=== PATIENT | male | born 1945 | race Hispanic/Latino ===

== ENCOUNTER 2019-10-01 11:00 | Inpatient (IN) | payer OTHER ==
[~2019-10-01] VITALS: Ht 180.3 cm; Wt 117.9 kg
[2019-10-10 08:53] VITALS: BP 137/83
[2019-10-10 11:09] LABS: BASOPHILS % (AUTO) 0.5 % (0.0-5.0); EOSINOPHILS % (AUTO) 3.6 % (0.0-8.0); HEMATOCRIT 43.7 % (42-54); LYMPHOCYTES % (AUTO) 25.6 % (21.0-51.0); MEAN CORPUSCULAR HEMOGLOBIN 30.8 pg (27.0-33.0); MEAN CORPUSCULAR HGB CONC 32.7 g/dL (32.0-36.0); MONOCYTES % (AUTO) 11.8 % (3.0-13.0); NEUTROPHILS % (AUTO) 58.2 % (40.0-77.0); PLATELET COUNT (AUTO) 247 K/uL (130-400); RED BLOOD CELL COUNT(AUTO) 4.65 MIL/uL (4.50-6.20); RED CELL DISTRIBUTION WIDTH 13.2 % (11.0-15.5); WHITE BLOOD COUNT (AUTO) 5.8 K/uL (4.8-10.8)
[2019-10-10 11:11] LABS: APPEARANCE,URINE Clear (CLEAR); BILIRUBIN,URINE Negative (NEGATIVE); COLOR,URINE Dark Yellow (YELLOW); GLUCOSE, URINE (UA) Negative (NEGATIVE); KETONES,URINE Negative (NEGATIVE); LEUKOCYTE ESTERASE ,URINE Negative (NEGATIVE); NITRATE,URINE Negative (NEGATIVE); OCCULT BLOOD,URINE Negative (NEGATIVE); PH,URINE 5.5 (5.0-8.0); PROTEIN,URINE POS 1+ mg/dL (NEGATIVE); UROBILINOGEN,URINE 0.2 mg/dL (0.2-1.0)
[2019-10-10 11:15] LABS: CREATININE 1.4 mg/dL (0.5-1.5); POTASSIUM 4.1 mmol/L (3.5-5.1)
[2019-10-10 11:25] LABS: INR 1.04 (0.85-1.15); PROTHROMBIN TIME 11.2 SEC (9.6-11.6)
[2019-10-10 11:33] LABS: BACTERIA,URINE None Seen /HPF (None Seen); RBC,URINE 0-1 /HPF (0-1); SPERM,URINE Moderate /HPF (None Seen); SQUAMOUS EPITHELIAL CELL,UR 0-2 /HPF (0-2); WBC,URINE 0-1 /HPF (0-1)
[2019-10-11] MEDS ORDERED: ATOR40TA69 PO (09:49)
[2019-10-11] MEDS ORDERED: PANT40TA54 PO (09:49)
[2019-10-11] MEDS ORDERED: TRAM50TA4 PO (09:49)
[2019-10-11] MEDS ORDERED: LISI2.5T2 PO (09:49)
[2019-10-11] MEDS ORDERED: ACET-66 PO (09:49)
[2019-10-11] MEDS ORDERED: LORA10TA7 PO (09:49)
[2019-10-11] MEDS ORDERED: ASPI1CPM8 PO (09:49)
[2019-10-11] MEDS ORDERED: DOCU100C33 PO (09:49)
[2019-10-11] MEDS ORDERED: VITA1TAB22 PO (09:49)
[2019-10-11] MEDS ORDERED: ALBUTEROL INHALER IH (09:49)
[2019-10-11] MEDS ORDERED: METH500T6 PO (09:50)
--- NOTE | 2019-10-11 11:45 | NUR ---
re: order clarification spoke with dr woodward regarding order for left knee arthroplasty. clarified order, patient will be having a RIGHT knee arthroscopy. Addendum: 10/11/19 at 1201 by FIONA STEWARD RN RN patient will be having a RIGHT knee arthroplasty
[2019-10-14] VITALS (24 sets, daily range): BP systolic 100–164; BP diastolic 46–95
[2019-10-14] MEDS: CEFAZOLIN 3GM /D5W 100ML 100 ML IV SCH (06:00)
[2019-10-14] MEDS ORDERED: LACTATED RINGERS 1000ML 1,000 ML IV ONE (07:41)
[2019-10-14] MEDS ORDERED: CEFAZOLIN SODIUM 1 GM VIAL ONE ×3 (07:41→08:55)
--- NOTE | 2019-10-14 08:00 | NUR ---
POTENTIAL FOR INFECTION: SHAVED RIGHT KNEE / RIGHT LEG PER ANIBAL YEH, FOLLOWED BY WIPING WITH CHLOE: 2% CHLORHEXIDINE GLUCONATE CLOTH PATIENTS PRE-OP SKIN PREP.
[2019-10-14] MEDS ORDERED: PROPOFOL 10 MG/ML 20ML VIAL IV ONE (09:02)
[2019-10-14] MEDS ORDERED: FENTANYL CITRATE PF 50 MCG/1 ML 2ML VIAL ONE ×2 (09:02→10:46)
[2019-10-14] MEDS ORDERED: LIDOCAINE PF 2% 5ML ABBOJECT ONE (09:02)
[2019-10-14] MEDS ORDERED: ROCURONIUM 10MG/1ML SYR 10 MG/ML ML ONE (09:02)
[2019-10-14] MEDS ORDERED: SUCCINYLCHOLINE CHLORIDE 20 MG/ML 10 ML VIAL ONE (09:07)
[2019-10-14] MEDS ORDERED: TRANEXAMIC ACID 1000MG/10ML ONE ×2 (09:17→12:08)
[2019-10-14] MEDS ORDERED: NEOSTIGMINE 5MG/5ML SYR IV ONE (09:56)
[2019-10-14] MEDS ORDERED: GLYCOPYRROLATE 1 MG/5 ML SYRINGE ONE (09:56)
[2019-10-14] MEDS ORDERED: POTASSIUM CHLORIDE 20MEQ/100ML 100 ML IV PRN (12:00)
[2019-10-14] MEDS ORDERED: DiphenhydrAMINE HCL 50 MG/ML VIAL IVP PRN (12:00)
[2019-10-14] MEDS ORDERED: POTASSIUM CHLORIDE 20 MEQ ERTAB PO PRN (12:00)
[2019-10-14] MEDS ORDERED: FERROUS FUMARATE 324 MG TABLET PO PRN (12:00)
[2019-10-14] MEDS ORDERED: ONDANSETRON HCL 4 MG/2 ML VIAL IVP PRN (12:00)
[2019-10-14] MEDS ORDERED: CALCIUM CARBONATE 500 MG TABLET PO PRN (12:00)
[2019-10-14] MEDS ORDERED: TEMAZEPAM 15 MG CAPSULE PO PRN (12:00)
[2019-10-14] MEDS ORDERED: POTASSIUM CHLORIDE 10% ELIXIR 20 MEQ/15 ML UDCUP PO PRN (12:00)
[2019-10-14] MEDS ORDERED: LIDOCAINE HCL-MPF 1% 2ML VIAL IV PRN (12:00)
[2019-10-14] MEDS ORDERED: ONDANSETRON HCL 4 MG/2 ML VIAL ONE (12:03)
[2019-10-14] MEDS ORDERED: MEPERIDINE-PF 25 MG/ML SYG ONE (13:00)
--- NOTE | 2019-10-14 13:33 | NUR ---
POST SURGERY PATIENT RECEIVED FROM PACU VIA HOSPITAL BED IN STABLE CONDITION. HE IS AWAKE BUT GROGGY. DENIES PAIN AT THIS TIME. DRESSING TO THE RIGHT KNEE IS DRY AND INTACT. IV IS PATENT INFUSING IV FLUIDS VIA PUMP WITH NO REDNESS OR SWELLING NOTED TO SITE. HE HAS BEEN ORIENTED TO ROOM AND USE OF CALL LIGHT. BED IS IN LOWEST POSITION AND LOCKED. POST OP V/S HAVE BEEN INITIATED. WILL CONTINUE TO MONITOR.
--- NOTE | 2019-10-14 13:39 | NUR ---
DC PLAN VISITED WITH PATIENT. PATIENT VALENTÍN S/P RIGHT KNEE. CALLED SPOUSE. PATIENT LIVES AT HOME WITH HER. INDEPENDENT. DME AVAILABLE, WALKER, WHEEL CHAIR, SCOOTER, CANE, DISABLED BATHROOM, SOFA LIFT. ASKED PERMISSION TO [place]END [place] FOR HOME HEALTH. GAVE CONSENT OVER THE PHONE. INFO SENT TO [place]. PENDING FAX TO BE RECEIVED. SENT TO ALL 4 NUMBERS. Addendum: 10/14/19 at 1342 by SHARMAINE KIM RN Amended: Links added.
[2019-10-14] MEDS: SODIUM CHLORIDE 0.9% 1000ML 1,000 ML IV SCH (13:55)
[2019-10-14] MEDS: ACETAMINOPHEN EXTRA STRENGTH 500 MG TABLET PO SCH ×2 (13:57→20:41)
[2019-10-14] MEDS ORDERED: TRAMADOL HCL 50 MG TABLET PO PRN (14:15)
[2019-10-14] MEDS ORDERED: ACETAMINOPHEN EXTRA STRENGTH 500 MG TABLET PO PRN (14:15)
[2019-10-14] MEDS: CEFAZOLIN SODIUM 1 GM VIAL IVP SCH (17:16)
[2019-10-14] MEDS: OXYCODONE HCL 5 MG TAB PO PRN (17:17)
[2019-10-14] MEDS: TRAMADOL HCL 50 MG TABLET PO PRN (17:28)
[2019-10-14] MEDS: ASPIRIN 81MG TAB.CHEW PO SCH (20:40)
[2019-10-14] MEDS: KETOROLAC TROMETHAMINE 15MG/ML IV PRN (20:40)
[2019-10-14] MEDS: FAMOTIDINE 20MG TAB 20 MG TAB PO SCH (20:41)
[2019-10-14] MEDS: PREGABALIN 25 MG CAP PO SCH (20:41)
[2019-10-14] MEDS: CELECOXIB 200 MG CAP PO SCH (20:41)
[2019-10-15] MEDS: CEFAZOLIN SODIUM 1 GM VIAL IVP SCH (00:32)
[2019-10-15] MEDS: CYCLOBENZAPRINE HCL 10 MG TABLET PO PRN ×4 (00:32→16:37)
[2019-10-15] MEDS: SODIUM CHLORIDE 0.9% 1000ML 1,000 ML IV SCH ×3 (00:34→10:28)
[2019-10-15] MEDS: TRAMADOL HCL 50 MG TABLET PO PRN ×3 (00:34→13:21)
[2019-10-15 03:51] VITALS: BP 105/62
[2019-10-15] MEDS: ACETAMINOPHEN EXTRA STRENGTH 500 MG TABLET PO SCH ×3 (04:40→20:07)
[2019-10-15 05:02] LABS: HEMATOCRIT 31.6 % (42-54); MEAN CORPUSCULAR HEMOGLOBIN 31.1 pg (27.0-33.0); MEAN CORPUSCULAR HGB CONC 33.5 g/dL (32.0-36.0); MEAN CORPUSCULAR VOLUME 92.7 fL (79-99); RED BLOOD CELL COUNT(AUTO) 3.41 MIL/uL (4.50-6.20); RED CELL DISTRIBUTION WIDTH 13.2 % (11.0-15.5); WHITE BLOOD COUNT (AUTO) 7.8 K/uL (4.8-10.8)
[2019-10-15 05:23] LABS: CREATININE 1.5 mg/dL (0.5-1.5)
[2019-10-15] MEDS: CEFAZOLIN 3GM /D5W 100ML 100 ML IV SCH (06:00)
[2019-10-15] MEDS: PHARMACY COMMUNICATION MISC SCH ×3 (06:45→22:45)
[2019-10-15] MEDS: KETOROLAC TROMETHAMINE 15MG/ML IV PRN (08:00)
[2019-10-15 08:02] VITALS: BP 109/62
[2019-10-15] MEDS: CELECOXIB 200 MG CAP PO SCH ×2 (08:32→20:01)
[2019-10-15] MEDS: VITAMIN B COMPLEX 1 CAPSULE PO SCH (08:32)
[2019-10-15] MEDS: TAMSULOSIN HCL 0.4 MG CAP.ER.24H PO SCH (08:32)
[2019-10-15] MEDS: POLYETHYLENE GLYCOL 3350 17 GM POWD.PACK PO SCH (08:32)
[2019-10-15] MEDS: ASPIRIN 81MG TAB.CHEW PO SCH ×2 (08:33→20:01)
[2019-10-15] MEDS: LORATADINE 10 MG TABLET PO SCH (08:33)
[2019-10-15] MEDS: PREGABALIN 25 MG CAP PO SCH ×2 (08:33→20:01)
[2019-10-15] MEDS: ATORVASTATIN CALCIUM 40 MG TABLET PO SCH (08:33)
[2019-10-15] MEDS: LISINOPRIL 2.5 MG TABLET PO SCH (08:33)
[2019-10-15] MEDS ORDERED: PANTOPRAZOLE SODIUM 40 MG TABLET.DR PO SCH (09:00)
--- NOTE | 2019-10-15 10:40 | NUR ---
AFTER ONLY 30 MINUTES SITTING IN THE CHAIR, PATIENT WANTED TO GO BACK TO BED, EDUCATED PATIENT ON LUNG EXPANSION AND PREVENTION OF PNEUMONIA. PATIENT AGREED TO STAY A LITTLE LONGER ON THE CHAIR. ICE APPLIED TO RIGHT KNEE.
[2019-10-15 11:08] VITALS: BP 100/61
[2019-10-15 16:07] VITALS: BP 97/54
[2019-10-15] MEDS: FAMOTIDINE 20MG TAB 20 MG TAB PO SCH (20:01)
[2019-10-15 20:20] VITALS: BP 109/62
[2019-10-15] MEDS: OXYCODONE HCL 5 MG TAB PO PRN (23:08)
[2019-10-15 23:48] VITALS: BP 105/62
[2019-10-16 03:50] VITALS: BP 122/69
[2019-10-16] MEDS: ACETAMINOPHEN EXTRA STRENGTH 500 MG TABLET PO SCH ×2 (04:00→12:18)
[2019-10-16] MEDS: PHARMACY COMMUNICATION MISC SCH ×2 (06:45→12:00)
[2019-10-16] MEDS: TAMSULOSIN HCL 0.4 MG CAP.ER.24H PO SCH (07:43)
[2019-10-16] MEDS: CELECOXIB 200 MG CAP PO SCH (07:43)
[2019-10-16] MEDS: LORATADINE 10 MG TABLET PO SCH (07:43)
[2019-10-16] MEDS: PREGABALIN 25 MG CAP PO SCH (07:43)
[2019-10-16] MEDS: LISINOPRIL 2.5 MG TABLET PO SCH (07:43)
[2019-10-16] MEDS: POLYETHYLENE GLYCOL 3350 17 GM POWD.PACK PO SCH (07:43)
[2019-10-16] MEDS: ASPIRIN 81MG TAB.CHEW PO SCH (07:43)
[2019-10-16] MEDS: ATORVASTATIN CALCIUM 40 MG TABLET PO SCH (07:44)
[2019-10-16] MEDS: OXYCODONE HCL 5 MG TAB PO PRN ×4 (07:44→19:57)
[2019-10-16] MEDS: VITAMIN B COMPLEX 1 CAPSULE PO SCH (07:44)
[2019-10-16 08:46] VITALS: BP 114/65
[2019-10-16 11:32] VITALS: BP 106/65
[2019-10-16 16:47] VITALS: BP 99/62
[2019-10-16] MEDS ORDERED: ASPI-1005 PO (17:30)
[2019-10-16] MEDS ORDERED: TRAM50TA4 PO (17:30)
[2019-10-16] MEDS ORDERED: OXYC5 PO (18:26)
[2019-10-17] MEDS ORDERED: BISACODYL 10 MG SUPP.RECT RC PRN (12:00)
== END 2019-10-16 20:40 | disposition home health service (06) | DRG 470 ==
LOC: EDSTATUS 10-11 10:00 → DAHIP 10-14 07:25 → 3DH 10-14 12:08
PROVIDERS: ADMIT Orthopaedic Surgery; ATTEND Orthopaedic Surgery
PROC: 3E0T3BZ Introduction of Anesthetic Agent into Peripheral Nerves and Plexi, Percutaneous Approach (ICD-10-PCS; 2019-10-14)
PROC: 0SRC0J9 Replacement of Right Knee Joint with Synthetic Substitute, Cemented, Open Approach (ICD-10-PCS; principal; 2019-10-14 09:32)
DX: M17.11 Unilateral primary osteoarthritis, right knee (principal); K21.9 Gastro-esophageal reflux disease without esophagitis; E78.5 Hyperlipidemia, unspecified; G89.29 Other chronic pain; F17.200 Nicotine dependence, unspecified, uncomplicated; F43.10 Post-traumatic stress disorder, unspecified; G25.81 Restless legs syndrome; H91.90 Unspecified hearing loss, unspecified ear; I10 Essential (primary) hypertension; J44.9 Chronic obstructive pulmonary disease, unspecified; G56.00 Carpal tunnel syndrome, unspecified upper limb; Z88.5 Allergy status to narcotic agent; Z81.8 Family history of other mental and behavioral disorders
CPT/HCPCS: 36415; 80048; 81001; 85025; 85027; 85610; 87641; 88305; 88311; 97039; G0378; J0330; J0690; J1885; J2001; J2175; J2405; J2704; J2710; J3010; J3490; J7030; J7120

== ENCOUNTER 2021-12-25 19:07 | Emergency (ER) | payer OTHER ==
[~2021-12-25] VITALS: Ht 185.4 cm; Wt 114.3 kg
[~2021-12-25 19:07] MED LIST: ACET-66 PO; ALBUTEROL INHALER IH; ASPI-1005 PO; ATOR40TA69 PO; DOCU100C33 PO; LISI2.5T13 PO; LORA10TA7 PO; METH-811 PO; OXYC5 PO; PANT40TA54 PO; TRAM50TA4 PO; VITA1TAB22 PO
[2021-12-25 19:26] LABS: BASOPHILS % (AUTO) 0.6 % (0.0-5.0); EOSINOPHILS % (AUTO) 6.4 % (0.0-8.0); HEMATOCRIT 40.6 % (42-54); LYMPHOCYTES % (AUTO) 36.8 % (21.0-51.0); MEAN CORPUSCULAR HEMOGLOBIN 31.5 pg (27.0-33.0); MEAN CORPUSCULAR HGB CONC 33.7 g/dL (32.0-36.0); MEAN CORPUSCULAR VOLUME 93.3 fL (79-99); NEUTROPHILS % (AUTO) 44.9 % (40.0-77.0); PLATELET COUNT (AUTO) 226 K/uL (130-400); RED BLOOD CELL COUNT(AUTO) 4.35 MIL/uL (4.50-6.20); WHITE BLOOD COUNT (AUTO) 6.9 K/uL (4.8-10.8)
[2021-12-25 19:48] LABS: ALBUMIN 3.4 g/dL (3.5-5.0); CREATININE 1.4 mg/dL (0.5-1.5); POTASSIUM 3.9 mmol/L (3.5-5.1); TOTAL PROTEIN, SERUM 7.2 g/dL (6.0-8.3)
[2021-12-25 20:23] LABS: APPEARANCE,URINE CLEAR (CLEAR); BILIRUBIN,URINE NEGATIVE (NEGATIVE); COLOR,URINE YELLOW (YELLOW); GLUCOSE, URINE (UA) NEGATIVE (NEGATIVE); KETONES,URINE NEGATIVE (NEGATIVE); LEUKOCYTE ESTERASE ,URINE NEGATIVE (NEGATIVE); NITRATE,URINE NEGATIVE (NEGATIVE); OCCULT BLOOD,URINE NEGATIVE (NEGATIVE); PROTEIN,URINE NEGATIVE (NEGATIVE); UROBILINOGEN,URINE 0.2 mg/dL (0.2-1.0)
[2021-12-25 21:00] VITALS: BP 133/82
== END 2021-12-25 21:13 | disposition home or self-care (01) ==
LOC: EDH 19:07
DX: R42 Dizziness and giddiness (principal); E11.9 Type 2 diabetes mellitus without complications; I10 Essential (primary) hypertension; Z88.5 Allergy status to narcotic agent; Z79.82 Long term (current) use of aspirin; Z79.899 Other long term (current) drug therapy
CPT/HCPCS: 36415; 70450; 80053; 81003; 84484; 85025; 93005

== ENCOUNTER 2024-07-30 01:07 | Emergency (ER) | payer OTHER, MEDICARE ==
[~2024-07-30] VITALS: Ht 180.3 cm; Wt 116.1 kg
[~2024-07-30 01:07] MED LIST changes: +VITA-427 PO; -VITA1TAB22 PO
[2024-07-30] MEDS: ketOROlac 30MG VIAL (30MG/ML) IVP ONE (01:37)
[2024-07-30 01:38] LABS: BASOPHILS # (AUTO) 0.04 K/uL (0.00-0.20); BASOPHILS % (AUTO) 0.5 % (0.0-5.0); EOSINOPHILS # (AUTO) 0.36 K/uL (0.00-0.70); EOSINOPHILS % (AUTO) 4.3 % (0.0-8.0); HEMATOCRIT 31.9 % (42-54); IMMATURE GRANULOCYTE ABSOLUTE 0.02 K/uL (0-1); LYMPHOCYTES # (AUTO) 2.1 K/uL (1.0-4.8); LYMPHOCYTES % (AUTO) 25.3 % (21.0-51.0); MEAN CORPUSCULAR HEMOGLOBIN 31.4 pg (27.0-33.0); MEAN CORPUSCULAR VOLUME 98.2 fL (79-99); MONOCYTES # (AUTO) 0.9 K/uL (0.1-1.0); MONOCYTES % (AUTO) 10.9 % (3.0-13.0); NEUTROPHILS # (AUTO) 4.9 K/uL (1.8-7.7); NEUTROPHILS % (AUTO) 58.8 % (40.0-77.0); PLATELET COUNT (AUTO) 325 K/uL (130-400); RED BLOOD CELL COUNT(AUTO) 3.25 MIL/uL (4.50-6.20); RED CELL DISTRIBUTION WIDTH 13.3 % (11.0-15.5); WHITE BLOOD COUNT (AUTO) 8.3 K/uL (4.8-10.8)
--- NOTE | 2024-07-30 01:41 | ERN ---
General Chief Complaint: Knee Injury/Swelling Stated Complaint: LEFT KNEE PAIN Time Seen by MD: 01:10 Source: patient History of Present Illness Initial Comments PATIENT IS A 78-YEAR-OLD MALE COMING IN TO BE EVALUATED FOR LEFT KNEE PAIN. PATIENT STATES THAT THE PAIN HAS BEEN ONGOING FOR SOME TIME. HE STATES HE HAS A SURGERY IN THE LEFT KNEE FOR THE PAIN BUT THE PAIN STILL HAS NOT GOTTEN ANY BETTER. PATIENT STATES THAT THE PAIN HAS BEEN ONGOING SINCE PRIOR TO SURGERY SURGERY WAS TWO WEEKS AGO. Allergies: Coded Allergies: codeine (Verified Allergy, Unknown, 10/11/19) Home Meds Active Scripts Oxycodone HCl (Roxicodone) 5 Mg Tab, 5-10 MG PO Q6HPRN PRN for pain, #40 TAB Prov:JAKE SCHMITT MD 10/16/19 Aspirin (ASPIRIN 81MG CHEW TAB) 81 Mg Tab.chew, 81 MG PO BID, #60 TAB.CHEW Prov:JAKE SCHMITT MD 10/16/19 Tramadol Hcl (Tramadol HCl) 50 Mg Tablet, 50 MG PO Q6H PRN for pain, #60 TAB 1 Refill Prov:JAKE SCHMITT MD 10/16/19 Reported Medications Methocarbamol (Methocarbamol) 500 Mg Tablet, 500 MG PO QIDP PRN for MUSCLE SPASMS, TAB 10/11/19 [Albuterol Inhaler] No Conflict Check, 2 PUFF IH AD PRN for SHORTNESS OF BREAT H 10/11/19 Atorvastatin Calcium (LIPITOR) 80 Mg Tablet, 40 MG PO DAILY, TAB 10/11/19 Vitamin B Complex (Vitamin B Complex) 1 Each Tablet, 1 EACH PO DAILY, TAB 10/11/19 Docusate Sodium (Docusate Sodium) 100 Mg Capsule, 100 MG PO DAILY, CAP 10/11/19 Acetaminophen (Tylenol) 500 Mg Tab, 500 MG PO TIDP PRN for PAIN LEVEL 1 TO 5, TAB 10/11/19 Tramadol Hcl (Tramadol HCl) 50 Mg Tablet, 50 MG PO TIDP PRN for PAIN LEVEL 6 TO 10, TAB 10/11/19 Pantoprazole Sodium (Pantoprazole Sodium) 40 Mg Tablet.dr, 40 MG PO DAILY, TAB 10/11/19 Loratadine (Loratadine) 10 Mg Tablet, 10 MG PO DAILY, TAB 10/11/19 Lisinopril (Lisinopril) 2.5 Mg Tablet, 2.5 MG PO DAILY, TAB 10/11/19 Past Medical History Past Medical History: Arthritis, Diabetes-Type II, Hypertension Past Surgical History: Other Surgical History Other: R KNEE REPLACEMENT, HERNIA REPAIR Social History Social History: Other ROS Dictation CONSTITUTIONAL: NO CHILLS, NO FEVER, NO WEAKNESS, NO DIAPHORESIS, NO MALAISE. HEAD/FACE: NO SIGNS OF TRAUMA. EENT: NO EYE PAIN, NO BLURRED VISION, NO TEARING, NO DOUBLE VISION, NO EAR PAIN, NO EAR DISCHARGE, NO NOSE PAIN, NO NASAL CONGESTION, NO THROAT PAIN, NO THROAT SWELLING, NO MOUTH PAIN. RESPIRATORY: NO COUGH, NO ORTHOPNEA, NO SOB, NO STRIDOR, NO WHEEZING. CARDIOVASCULAR: NO CHEST PAIN, NO EDEMA, NO PALPITATIONS, NO SYNCOPE. GASTROINTESTINAL/ABDOMINAL: NO ABDOMINAL PAIN, NO CONSTIPATION, NO DIARRHEA, NO NAUSEA, NO VOMITING. GENITOURINARY: NO ABNORMAL DISCHARGE, NO DYSURIA, NO FREQUENT URINATION, NO HEMATURIA. NO COMPLAINTS OF PAIN IN THE GENITALS. MUSCULOSKELETAL: NO BACK PAIN, NO GOUT, JOINT PAIN, NO JOINT SWELLING, MUSCLE PAIN, MUSCLE STIFFNESS, NO NECK PAIN. INTEGUMENTARY: NO CHANGE IN COLOR, NO CHANGE IN HAIR/NAILS, NO DRYNESS, NO L ESION, NO LUMPS, NO RASH. NEUROLOGICAL/PSYCH: NO ANXIETY, NOT DEPRESSED, NO EMOTIONAL PROBLEM, NO HEADACHE, NO NUMBNESS, NO PRE-EXISTING DEFICIT, NO HISTORY OF SEIZURES, NO TREMORS, NO WEAKNESS. HEMATOLOGIC/LYMPHATIC: NOT ANEMIC, NO HISTORY OF BLOOD CLOTS, NO APPARENT BLEEDING, NO BRUISING, GLANDS NOT SWOLLEN. ALL SYSTEMS NEGATIVE, EXCEPT NOTED. Physical Exam Physical Exam Dictation VITAL SIGNS: REVIEWED. GENERAL APPEARANCE: ALERT, ORIENTED X3, NO ACUTE DISTRESS, OBESE. HEAD AND FACE: NON-TRAUMATIC. EYES: PERRL, PINK CONJUNCTIVAS, EYELID NO TRAUMA, ANTERIOR CHAMBER CLEAR. EARS: PINNAS INTACT AND NO SIGNS OF TRAUMA OR ERYTHEMA. EAR CANALS CLEAR AND NO DISCHARGE. TMS NO ERYTHEMA. NOSE: NO DISCHARGE, NO BLEEDING. OROPHARYNX: MOUTH NORMAL, TEETH NO CARIES, TONGUE PINK. PHARYNX CLEAR, NO ERYTHEMA. TONSILS NO EXUDATES, NO ABSCESSES NOTED. MUCOUS MEMBRANE MOIST. NECK: SUPPLE, NON-TENDER, NO THYROMEGALY, NO MASSES, NO JVD, NO BRUITS. BREAST: DEFERRED. CHEST: NO TENDERNESS, NO CREPITUS, NO PARADOXICAL MOVEMENT, NO RETRACTIONS. LUNGS: CLEAR, WELL-VENTILATED, SYMMETRIC, NO RALES, NO WHEEZING, NO RHONCHI, NO STRIDOR, GOOD BREATH SOUNDS BILATERALLY. HEART: REGULAR RATE, REGULAR RHYTHM, NO MURMUR, NO GALLOPS. VASCULAR: NO PERIPHERAL EDEMA. ABDOMEN: SOFT, POSITIVE BOWEL SOUNDS, NONDISTENDED, NO GUARDING, NONTENDER, NO REBOUND, NO MASSES NO HEPATOMEGALY, NO SPLENOMEGALY, NO THOMSON'S SIGN, NO HERNIAS. RECTAL: DEFERRED. GENITAL: DEFERRED. NEUROLOGICAL: NORMAL SPEECH, GROSS MOTOR FUNCTION INTACT, GROSS SENSORY FUNCTION INTACT. MUSCULOSKELETAL: NECK NONTENDER, FULL RANGE OF MOTION, BACK NONTENDER, FULL RANGE OF MOTION. EXTREMITIES: NONTENDER, FULL RANGE OF MOTION. LEFT KNEE PAIN. SKIN: COLOR PINK, DRY, NO TURGOR, NO RASH, NO LACERATIONS, NO ABRASIONS, NO CONTUSIONS. LYMPHATICS: DEFERRED. Results Laboratory and Microbiology Lab and Micro Result Laboratory Tests Test 07/30/24 01:30 White Blood Count 8.3 K/uL (4.8-10.8) Red Blood Count 3.25 MIL/uL (4.50-6.20) L Hemoglobin 10.2 g/dL (14.0-18.0) L Hematocrit 31.9 % (42-54) L Mean Corpuscular Volume 98.2 fL (79-99) Mean Corpuscular Hemoglobin 31.4 pg (27.0-33.0) Mean Corpuscular Hemoglobin Concent 32.0 g/dL (32.0-36.0) Red Cell Distribution Width 13.3 % (11.0-15.5) Platelet Count 325 K/uL (130-400) Mean Platelet Volume 9.6 fL (7.5-10.5) Immature Granulocyte % (Auto) 0.2 % (0-1) Neutrophils (%) (Auto) 58.8 % (40.0-77.0) Lymphocytes (%) (Auto) 25.3 % (21.0-51.0) Monocytes (%) (Auto) 10.9 % (3.0-13.0) Eosinophils (%) (Auto) 4.3 % (0.0-8.0) Basophils (%) (Auto) 0.5 % (0.0-5.0) Neutrophils # (Auto) 4.9 K/uL (1.8-7.7) Lymphocytes # (Auto) 2.1 K/uL (1.0-4.8) Monocytes # (Auto) 0.9 K/uL (0.1-1.0) Eosinophils # (Auto) 0.36 K/uL (0.00-0.70) Basophils # (Auto) 0.04 K/uL (0.00-0.20) Absolute Immature Granulocyte (auto 0.02 K/uL (0-1) Nucleated Red Blood Cells 0.0 % (0.0-0.19) Sodium Level 141 mmol/L (136-145) Potassium Level 4.7 mmol/L (3.5-5.1) Chloride Level 107 mmol/L (101-111) Carbon Dioxide Level 27 mmol/L (21-32) Blood Urea Nitrogen 26 mg/dL (7-18) H Creatinine 1.6 mg/dL (0.5-1.3) H Glomerular Filtration Rate Calc 44 mL/min (>90) Random Glucose 105 mg/dL (70-105) Total Calcium 9.2 mg/dL (8.5-10.1) Labs Reviewed?: Yes EKG/XRAY/US/CT/MRI X-RAY Comment LEFT KNEE X-RAY-NAD Ultrasound Comment VENOUS ULTRASOUND LOWER LEFT EXTREMITY- NO DVT MDM MDM: DIFFERENTIAL DIAGNOSIS: KNEE PAIN, STATUS POST SURGERY, RULE OUT DVT, PATIENT IS A 78-YEAR-OLD MALE COMING IN TO BE EVALUATED FOR LEFT KNEE PAIN. PHYSICAL EXAM THERE IS TENDERNESS THE LEFT KNEE AND TENDERNESS TO THE LEFT CALF. ULTRASOUND AND X-RAY DID NOT DISCLOSE ACUTE FINDINGS. PATIENT DID HAVE A SURGERY FOR THIS SAME PROBLEM TO HELP WITH THE PAIN BUT PATIENT STATES HE IS STILL HAVING PAIN. IMAGING STUDIES NEGATIVE ADVISED HIM APPROPRIATE FOLLOW UP WITH THE PCP IN 1-2 DAYS. PATIENT WILL BE DISCHARGED IN STABLE CONDITION. ED Course Orders Procedure Category Date Status Time Cbc With Differential LAB 07/30/24 Complete 01:15 Basic Metabolic Panel LAB 07/30/24 Complete 01:15 Knee 4+Vws Lt RAD 07/30/24 Taken 01:15 Ketorolac PHA 07/30/24 Complete Tromethamine 30mg/Ml 01:30 Us Venous Doppler US 07/30/24 Taken Unilateral 01:58 Current Medications Medications (Trade) Dose Ordered Sig/Sesar Route PRN Reason Start Time Stop Time Status Last Admin Dose Admin Ketorolac Tromethamine (toRADol) 30 mg ONCE ONCE IVP 07/30/24 01:30 07/30/24 01:31 DC 07/30/24 01:37 Vital Signs Date Time Temp Pulse Resp B/P (MAP) Pulse Ox O2 Delivery O2 Flow Rate FiO2 07/30/24 01:30 98.4 66 18 144/62 99 Room Air* 0 21 07/30/24 01:08 98.1 60 16 151/80 98 Room Air 0 DX & DISP Disposition: Discharge Departure Impression: Primary Impression: Left knee pain Additional Impressions: Strain of left knee, Status post knee replacement Condition: Stable Additional Instructions: FOLLOW-UP WITH PRIMARY CARE PROVIDER IN 1 TO 2 DAYS. TAKE MEDICATIONS DIRECTED HERE IN THE EMERGENCY ROOM. OKAY TO CONTINUE HOME MEDICATIONS UNLESS OTHERWISE DISCUSSED DURING YOUR VISIT IN THE EMERGENCY ROOM TODAY. RETURN TO YOUR NEAREST EMERGENCY ROOM IF SYMPTOMS WORSEN OR IF THERE IS NO IMPROVEMENT. CALL 911 IF YOU NEED IMMEDIATE ASSISTANCE. TAKE TYLENOL [id number] NEEDED AND IF NO CONTRAINDICATIONS ARE PRESENT. INCREASE ORAL HYDRATION. A WOUND CULTURE OR URINE CULTURE WAS ORDERED HERE IN THE EMERGENCY ROOM DEPARTMENT PLEASE FOLLOW-UP WITH PRIMARY CARE PROVIDER AND ADVISE THEM TO GET REPEAT PORTS FROM OUR FACILITY. IF YOU HAD ANY STEPHANIE WRAP/SPLINTS THAT WERE APPLIED HERE, PLEASE DO NOT REMOVE THEM UNTIL YOU SEE YOUR PRIMARY CARE OR SPECIALTY. REFERRALS: Referrals: ROCCO MARK (PCP) Time of Disposition: 03:10 JEFFY KHAN MD Jul 30, 2024 01:41
[2024-07-30 01:46] LABS: CREATININE 1.6 mg/dL (0.5-1.3); POTASSIUM 4.7 mmol/L (3.5-5.1)
[2024-07-30] MEDS ORDERED: GABA-529 PO (03:11)
--- NOTE | 2024-07-30 03:40 | NUR ---
TRANSPORT BOOKED UNABLE TO REACHED [facility] VIA PHONE CALL
--- NOTE | 2024-07-30 03:58 | NUR ---
EMS TRANSPORT CALLED. DISCHARGE PENDING EMS ARRIVAL TO TRANSPORT PATIENT HOME
[2024-07-30 04:33] VITALS: BP 130/65; PULSE 72; RESP 18; TEMP 98.4; O2SAT 98
--- NOTE | 2024-07-30 12:40 | HMCIMG ---
KNEE 4+VWS LT REASON: knee pain. COMPARISON: None TECHNIQUE: 3 images of left knee were obtained. FINDINGS: Total left knee replacement changes are seen. Vascular calcifications are seen. There is no acute displaced fracture or dislocation. IMPRESSION: Findings as described above.
--- NOTE | 2024-07-30 15:17 | HMCIMG ---
US VENOUS DOPPLER UNILATERAL HISTORY: Left lower extremity pain COMPARISON: None TECHNIQUE: Left lower extremity venous Doppler ultrasound study was performed. FINDINGS: The left common femoral, femoral, popliteal, and posterior tibial veins are visualized. Normal flow with augmentation and compressibilities are demonstrated. Left greater saphenous vein is patent. IMPRESSION: 1. No evidence of deep venous thrombosis is seen.
== END 2024-07-30 04:35 | disposition home or self-care (01) ==
LOC: EDH 01:07
DX: S86.912A Strain of unspecified muscle(s) and tendon(s) at lower leg level, left leg, initial encounter (principal); E11.9 Type 2 diabetes mellitus without complications; I10 Essential (primary) hypertension; M19.90 Unspecified osteoarthritis, unspecified site; M79.662 Pain in left lower leg; Z79.82 Long term (current) use of aspirin; Z79.899 Other long term (current) drug therapy; Z88.5 Allergy status to narcotic agent; Z96.651 Presence of right artificial knee joint; Z98.890 Other specified postprocedural states; X58.XXXA Exposure to other specified factors, initial encounter; Y93.89 Activity, other specified; Y92.89 Other specified places as the place of occurrence of the external cause; Y99.8 Other external cause status
CPT/HCPCS: 99285; 96374; 93971; 80048; 85025; 36415; 73564; J1885

== ENCOUNTER 2024-07-31 12:28 | Emergency (ER) | payer MEDICARE, OTHER ==
[~2024-07-31] VITALS: Ht 185.4 cm; Wt 127.0 kg
[~2024-07-31 12:28] MED LIST changes: +GABA-529 PO
--- NOTE | 2024-07-31 13:18 | ERN ---
ED Note History of Present Illness Stated Complaint: FALL YESTERDAY, LOW BACK PAIN Chief Complaint: Mechanical Fall Time Seen by MD: 12:39 Time Seen by Midlevel: 12:39 Dictation: 78-year-old male presents to the ED via EMS for evaluation post fall onset one day ago. Patient is not complaining of lower back pain, buttocks pain, states he hit his head but denies any LOC, further pain or any other associated symptoms at this time. EMS reports a blood glucose of 128 mg/dL. Patient had a recent left total knee replacement performed on 07/15/24. PMHx arthritis, HTN, DM Allergies: Coded Allergies: codeine (Verified Allergy, Unknown, 10/11/19) Home Meds Active Scripts Gabapentin (Gabapentin) 100 Mg Capsule, 1 CAP PO BID for 5 Days, #10 CAP 0 Refills Prov:JEFFY KHAN MD 07/30/24 Oxycodone HCl (Roxicodone) 5 Mg Tab, 5-10 MG PO Q6HPRN PRN for pain, #40 TAB Prov:JAKE SCHMITT MD 10/16/19 Aspirin (ASPIRIN 81MG CHEW TAB) 81 Mg Tab.chew, 81 MG PO BID, #60 TAB.CHEW Prov:JAKE SCHMITT MD 10/16/19 Tramadol Hcl (Tramadol HCl) 50 Mg Tablet, 50 MG PO Q6H PRN for pain, #60 TAB 1 Refill Prov:JAKE SCHMITT MD 10/16/19 Reported Medications Methocarbamol (Methocarbamol) 500 Mg Tablet, 500 MG PO QIDP PRN for MUSCLE SPASMS, TAB 10/11/19 [Albuterol Inhaler] No Conflict Check, 2 PUFF IH AD PRN for SHORTNESS OF BREATH 10/11/19 Atorvastatin Calcium (LIPITOR) 80 Mg Tablet, 40 MG PO DAILY, TAB 10/11/19 Vitamin B Complex (Vitamin B Complex) 1 Each Tablet, 1 EACH PO DAILY, TAB 10/11/19 Docusate Sodium (Docusate Sodium) 100 Mg Capsule, 100 MG PO DAILY, CAP 10/11/19 Acetaminophen (Tylenol) 500 Mg Tab, 500 MG PO TIDP PRN for PAIN LEVEL 1 TO 5, TAB 10/11/19 Tramadol Hcl (Tramadol HCl) 50 Mg Tablet, 50 MG PO TIDP PRN for PAIN LEVEL 6 TO 10, TAB 10/11/19 Pantoprazole Sodium (Pantoprazole Sodium) 40 Mg Tablet.dr, 40 MG PO DAILY, TAB 10/11/19 Loratadine (Loratadine) 10 Mg Tablet, 10 MG PO DAILY, TAB 10/11/19 Lisinopril (Lisinopril) 2.5 Mg Tablet, 2.5 MG PO DAILY, TAB 10/11/19 Past Medical History Past Medical History: Arthritis, Diabetes-Type II, Hypertension Surgical History: Other Surgical History Other: R KNEE REPLACEMENT, HERNIA REPAIR Social History: Other Review of System Dictation Constitutional: Positive for fall Negative for fever,chills, and weight loss Eyes: Negative for injury, pain,redness, and discharge ENT: Negative for injury,pain or swelling Cardiovascular: Negative for chest pain, palpitations, and edema Respiratory: Negative for shortness of breath, cough, and wheezing, Abdomen/GI: Negative for abdominal pain, nausea, vomiting, diarrhea, and constipation Back: Positive for back pain : Negative for injury, bleeding and discharge MS/Extremity: Positive for buttocks pain, lower back pain Negative for injury and deformity Skin: Negative for rash, and discoloration Neuro: Negative for headache, weakness, numbness, tingling, and seizure Psych: Negative for suicide ideation, homicidal ideation, and hallucinations Initial Vital Sign VS Vital Signs Date Time Temp Pulse Resp B/P (MAP) Pulse Ox O2 Delivery O2 Flow Rate FiO2 07/31/24 12:29 98.2 68 18 136/66 98 Room Air 0 07/31/24 13:10 21 Physical Exam Dictation General: awake, alert, NAD Head/Face: Normocephalic, atraumatic Eyes: PERRL, EOMI, normal conjunctiva ENT: oral cavity clear, no signs of infection Neck: Normal range of motion, supple, no cervical tenderness Cardiovascular: RRR, normal S1/S2, Respiratory: CTAB, no respiratory distress, no rales or wheezes Abdomen: Soft, non-tender, non-distended, no guarding or rebound. Back: Mild sacral tenderness with no ecchymosis noted Skin: Warm, dry, normal turgor, no rash MS/Extremity: Pulses equal, no cyanosis, neurovascular intact, FROM Neuro: COAx4, GCS 15, strength 5/5, CN 2-12 intact, normal cerebellar exam Psych: Normal behavior, mood, and affect normal Results (Laboratory/Radiology) Laboratory/Radiology Laboratory Tests Test 07/31/24 13:59 White Blood Count 7.2 K/uL (4.8-10.8) Red Blood Count 3.22 MIL/uL (4.50-6.20) L Hemoglobin 9.9 g/dL (14.0-18.0) L Hematocrit 31.2 % (42-54) L Mean Corpuscular Volume 96.9 fL (79-99) Mean Corpuscular Hemoglobin 30.7 pg (27.0-33.0) Mean Corpuscular Hemoglobin Concent 31.7 g/dL (32.0-36.0) L Red Cell Distribution Width 13.3 % (11.0-15.5) Platelet Count 326 K/uL (130-400) Mean Platelet Volume 9.3 fL (7.5-10.5) Immature Granulocyte % (Auto) 0.3 % (0-1) Neutrophils (%) (Auto) 62.3 % (40.0-77.0) Lymphocytes (%) (Auto) 23.3 % (21.0-51.0) Monocytes (%) (Auto) 9.2 % (3.0-13.0) Eosinophils (%) (Auto) 4.2 % (0.0-8.0) Basophils (%) (Auto) 0.7 % (0.0-5.0) Neutrophils # (Auto) 4.5 K/uL (1.8-7.7) Lymphocytes # (Auto) 1.7 K/uL (1.0-4.8) Monocytes # (Auto) 0.7 K/uL (0.1-1.0) Eosinophils # (Auto) 0.30 K/uL (0.00-0.70) Basophils # (Auto) 0.05 K/uL (0.00-0.20) Absolute Immature Granulocyte (auto 0.02 K/uL (0-1) Nucleated Red Blood Cells 0.0 % (0.0-0.19) Prothrombin Time 11.9 SEC (9.6-11.6) H Prothromb Time International Ratio 1.14 (0.85-1.15) Activated Partial Thromboplast Time 27.6 SEC (26.3-35.5) Sodium Level 141 mmol/L (136-145) Potassium Level 4.5 mmol/L (3.5-5.1) Chloride Level 108 mmol/L (101-111) Carbon Dioxide Level 29 mmol/L (21-32) Blood Urea Nitrogen 23 mg/dL (7-18) H Creatinine 1.4 mg/dL (0.5-1.3) H Glomerular Filtration Rate Calc 52 mL/min (>90) Random Glucose 94 mg/dL (70-105) Total Calcium 9.2 mg/dL (8.5-10.1) Labs Reviewed?: Yes ED Course ED Course Orders Procedure Category Date Status Time Ct Head/Brain W/O CT 07/31/24 Resulted Contrast 13:47 Cbc With Differential LAB 07/31/24 Complete 13:47 Basic Metabolic Panel LAB 07/31/24 Complete 13:47 Pt And Ptt LAB 07/31/24 Complete 13:47 Ct Cervical Spine W/O CT 07/31/24 Resulted Contrast 13:52 Ct Abdomen/Pelvis W/O CT 07/31/24 Resulted Contrast 13:52 Morphine 4mg Syg PHA 07/31/24 Complete (Morphine 4mg Syg) 14:00 Current Medications Medications (Trade) Dose Ordered Sig/Sesar Route PRN Reason Start Time Stop Time Status Last Admin Dose Admin Morphine Sulfate (morPHINE 4MG SYG) 4 mg ONCE ONCE IVP 07/31/24 14:00 07/31/24 14:01 DC 07/31/24 15:11 Vital Signs Date Time Temp Pulse Resp B/P (MAP) Pulse Ox O2 Delivery O2 Flow Rate FiO2 07/31/24 17:16 98.2 69 11 128/53 98 Room Air* 0 07/31/24 15:51 98.1 67 14 158/78 99 Room Air* 0 21 07/31/24 13:10 97.9 66 16 143/77 100 Room Air* 0 21 07/31/24 12:29 98.2 68 18 136/66 98 Room Air 0 Medical Decision Making MDM MDM: Differential diagnosis: Fall, back pain, contusion Rationale: 78-year-old male presents to the ED via EMS for evaluation post fall onset one day ago. Patient is not complaining of lower back pain, buttocks pain, states he hit his head but denies any LOC, further pain or any other associated symptoms at this time. EMS reports a blood glucose of 128 mg/dL. Patient had a recent left total knee replacement performed on 07/15/24. PMHx arthritis, HTN, DM Per physical examination patient appears to be in no acute distress, mild tenderness on palpation to the sacral area, alert and oriented GCS 15, no extremity pain or tenderness. Labs obtained indicate anemia with hemoglobin of 9.[address] indicates no fractures, degenerative changes noted. CT head indicates no acute intracranial bleeds atrophy within the white matter. CT abdomen / pelvis indicates thoracolumbar spine degenerative changes noted with no fractures. Patient was administered morphine in the ED. Patient and were educated on findings and diagnosis. Admission for observation was offered to patient and , however stated they were comfortable going home and following up outpatient. Advised to follow up with PCP. Return to the emergency department if any worsening symptoms. Patient verbalized understanding. Patient is stable for discharge. Previous outside records reviewed: Old ER visits. Risk of complication and/or morbidity or mortality of patient management: None Medications-Per medication reconciliation Need for hospitalization: Patient does not meet criteria for hospitalization. Need for emergency major/minor surgery: No There are no social concerns with this patient. Prescription drug management Prescriptions will include symptomatic care Patient's prior external medical records from other ER visits were reviewed by me as indicated. Prior testing and results from previous visits were reviewed. Prior tests were taken into account with medical decision making and resource utilization, independent historian/historians were used to obtain complete medical history. I independently interpreted the test that were performed, results were reviewed by me and considered findings on radiology if ordered. Medical management and examination interpretation discussions were had by me with other qualified healthcare professionals as indicated for the patient's care. DX & DISP Disposition: Discharge Departure Impression: Primary Impression: Fall Additional Impression: Sacral back pain Condition: Stable Additional Instructions: Discharge home. Rest. Follow up with primary care DrRoman in 24 hours. Return to the ER for any acute changes or worsening symptoms. If any medications were prescribed take as directed. Okay to continue home medications unless otherwise discussed during your visit in the emergency room today. Patient was also advised to follow-up with primary care physician in 1 to 2 days for continued monitoring. Referrals: ROCCO MARK (PCP) I have reviewed, & agreed with my scribe's, documentation. (I, Kim Fox, am scribing for BRIJESH Tabor) I performed the substantive portion of the visit. I have reviewed and pers onally made and approve the management plan that is documented in the notes by myself or the JESUS. I acknowledge full responsibility for the patient's management plan. I personally scribed for PATRICIO TABOR ([email or web address]) on 07/31/24 at 13:18. Electronically submitted by Kim Fox ([email or web address]). PATRICIO TABOR Jul 31, 2024 13:18
[2024-07-31 14:08] LABS: BASOPHILS # (AUTO) 0.05 K/uL (0.00-0.20); BASOPHILS % (AUTO) 0.7 % (0.0-5.0); EOSINOPHILS % (AUTO) 4.2 % (0.0-8.0); HEMATOCRIT 31.2 % (42-54); IMMATURE GRANULOCYTE ABSOLUTE 0.02 K/uL (0-1); LYMPHOCYTES # (AUTO) 1.7 K/uL (1.0-4.8); LYMPHOCYTES % (AUTO) 23.3 % (21.0-51.0); MEAN CORPUSCULAR HEMOGLOBIN 30.7 pg (27.0-33.0); MEAN CORPUSCULAR HGB CONC 31.7 g/dL (32.0-36.0); MEAN CORPUSCULAR VOLUME 96.9 fL (79-99); MONOCYTES # (AUTO) 0.7 K/uL (0.1-1.0); MONOCYTES % (AUTO) 9.2 % (3.0-13.0); NEUTROPHILS # (AUTO) 4.5 K/uL (1.8-7.7); NEUTROPHILS % (AUTO) 62.3 % (40.0-77.0); PLATELET COUNT (AUTO) 326 K/uL (130-400); RED BLOOD CELL COUNT(AUTO) 3.22 MIL/uL (4.50-6.20); RED CELL DISTRIBUTION WIDTH 13.3 % (11.0-15.5); WHITE BLOOD COUNT (AUTO) 7.2 K/uL (4.8-10.8)
[2024-07-31 14:20] LABS: CREATININE 1.4 mg/dL (0.5-1.3); POTASSIUM 4.5 mmol/L (3.5-5.1)
[2024-07-31 14:26] LABS: INR 1.14 (0.85-1.15); PROTHROMBIN TIME 11.9 SEC (9.6-11.6)
[2024-07-31 14:28] LABS: PARTIAL THROMBOPLASTIN TIME 27.6 SEC (26.3-35.5)
[2024-07-31] MEDS: morPHINE 4 MG SYG IVP ONE (15:11)
--- NOTE | 2024-07-31 16:00 | HMCIMG ---
CT HEAD/BRAIN W/O CONTRAST HISTORY: Status post fall COMPARISON: None TECHNIQUE: Multiple sequential axial images of the head were obtained from the base of the skull through vertex. Patient was not given contrast through intravenous route. FINDINGS: The ventricles and extraventricular CSF spaces are dilated consistent with cerebral atrophy. Nonspecific white matter changes seen. There is no midline shift, mass effect or herniation. No acute intracranial bleed is seen. Visualized portion of the paranasal sinuses are grossly within normal limits. IMPRESSION: 1. No acute intracranial bleed is seen. 2. Atrophy with white matter changes. CT was performed with one or more following dose reduction techniques: automated exposure control, adjustment of the mA and kv according to patient's size, or use of a iterative reconstruction technique.
--- NOTE | 2024-07-31 16:04 | HMCIMG ---
CT CERVICAL SPINE W/O CONTRAST HISTORY: Status post fall COMPARISON: None TECHNIQUE: Multiple sequential axial images of the cervical spine were obtained including post processing sagittal and coronal reconstruction images. Patient was not given contrast through intravenous route. FINDINGS: Disc/osteophyte complexes are noted at C6-7 level. There are degenerative changes with cervical spine spondylosis. There is straightening of normal lordotic cervical curvature which may be related to muscle spasm or positioning. There is no loss of vertebral height. Evaluation for disc and cord pathology is limited with CT study. No evidence of fracture or dislocation is seen. IMPRESSION: 1. No fracture is seen. CT was performed with one or more following dose reduction techniques: automated exposure control, adjustment of the mA and kv according to patient's size, or use of a iterative reconstruction technique.
--- NOTE | 2024-07-31 16:09 | HMCIMG ---
CT ABDOMEN/PELVIS W/O CONTRAST HISTORY: Frequent falls COMPARISON: None TECHNIQUE: Multiple sequential axial images of the abdomen and pelvis were obtained from the dome of the diaphragm through symphysis pubis. Patient was not given contrast through intravenous route. Oral contrast was not given. FINDINGS: There is a moderate hiatal hernia. Post gastric surgical changes are seen. No pleural effusion is seen bilaterally. There is no evidence of parenchymal disease or pulmonary nodule of the visualized lower lungs. Degenerative changes of the thoracolumbar spine are present. The heart is not enlarged. Postcholecystectomy changes are seen. Liver measures 15 cm. The liver, spleen, adrenal glands and pancreas are unremarkable. There is no evidence of hydronephrosis bilaterally. No evidence of renal stone is seen. Fecal material is seen in the colon. There is diverticulosis. There are normal size retroperitoneal and mesenteric lymph nodes. No ascites is seen. Atherosclerotic changes are present. Pelvic sidewalls are symmetric bilaterally. Bladder is well distended without wall thickening. IMPRESSION: 1. Fecal material is seen in the colon. Diverticulosis. No ascites. Moderate size hiatal hernia. CT was performed with one or more following dose reduction techniques: automated exposure control, adjustment of the mA and kv according to patient's size, or use of a iterative reconstruction technique.
[2024-07-31 17:16] VITALS: BP 128/53; PULSE 69; RESP 11; TEMP 98.3; O2SAT 98
== END 2024-07-31 18:41 | disposition home or self-care (01) ==
LOC: EDH 12:28
DX: M53.3 Sacrococcygeal disorders, not elsewhere classified (principal); M19.90 Unspecified osteoarthritis, unspecified site; E11.9 Type 2 diabetes mellitus without complications; I10 Essential (primary) hypertension; Z79.82 Long term (current) use of aspirin; Z79.899 Other long term (current) drug therapy; Z88.5 Allergy status to narcotic agent; Z96.651 Presence of right artificial knee joint; Z98.890 Other specified postprocedural states
CPT/HCPCS: 99285; 70450; 96374; 80048; 85025; 85610; 85730; 36415; 72125; 74176; J2270

== ENCOUNTER 2025-02-18 15:19 | Emergency (ER) | payer MEDICARE, OTHER ==
[~2025-02-18] VITALS: Ht 180.3 cm; Wt 115.2 kg
[~2025-02-18 15:19] MED LIST changes: +LIDO1ADH82 TP
[2025-02-18 15:20] VITALS: BP 146/84; PULSE 76; RESP 16; TEMP 98.2
--- NOTE | 2025-02-18 16:13 | ERN ---
General Chief Complaint: Congestion Stated Complaint: COUGH Time Seen by MD: 15:20 Source: patient History of Present Illness Initial Comments This patient is a 79-year-old male who presented with complaint of coughing with nasal congestion Patient stated that his symptoms started 2 weeks ago when he was on a trip. His symptoms improved with [id number] medication but re cently they have reoccurred. He denied any fever or chills but stated that he had sputum with cough alongside postnasal drip. Denied any chest pain or shortness of breath. Timing/Duration: 1 week Severity: mild Associated Symptoms: cough Allergies: Coded Allergies: codeine (Verified Allergy, Unknown, 10/11/19) Home Meds Active Scripts Loratadine (Loratadine) 10 Mg Tablet, 1 TAB PO DAILY for allergy symptoms for 30 Days, #30 TAB 0 Refills Prov:PROMISE BROWN MD 02/18/25 Fluticasone Propionate (Flonase Nasal [place]) 50 Mcg/Actuation [place], 2 SPRAY NS DAILY for postnasal drip for 30 Days, #16 GM 0 Refills Prov:PROMISE BROWN MD 02/18/25 Lidocaine (Lidocaine) 4 % Adh..patch, 1 PATCH TP DAILY for 10 Days, #10 PATCH 0 Refills Prov:KATY HUTSON 08/27/24 Gabapentin (Gabapentin) 100 Mg Capsule, 1 CAP PO BID for 5 Days, #10 CAP 0 Refills Prov:JEFFY KHAN MD 07/30/24 Oxycodone HCl (Roxicodone) 5 Mg Tab, 5-10 MG PO Q6HPRN PRN for pain, #40 TAB Prov:JAKE SCHMITT MD 10/16/19 Aspirin (ASPIRIN 81MG CHEW TAB) 81 Mg Tab.chew, 81 MG PO BID, #60 TAB.CHEW Prov:JAKE SCHMITT MD 10/16/19 Tramadol Hcl (Tramadol HCl) 50 Mg Tablet, 50 MG PO Q6H PRN for pain, #60 TAB 1 Refill Prov:JAKE SCHMITT MD 10/16/19 Reported Medications Methocarbamol (Methocarbamol) 500 Mg Tablet, 500 MG PO QIDP PRN for MUSCLE SPASMS, TAB 10/11/19 [Albuterol Inhaler] No Conflict Check, 2 PUFF IH AD PRN for SHORTNESS OF BREATH 10/11/19 Atorvastatin Calcium (LIPITOR) 80 Mg Tablet, 40 MG PO DAILY, TAB 10/11/19 Vitamin B Complex (Vitamin B Complex) 1 Each Tablet, 1 EACH PO DAILY, TAB 10/11/19 Docusate Sodium (Docusate Sodium) 100 Mg Capsule, 100 MG PO DAILY, CAP 10/11/19 Acetaminophen (Tylenol) 500 Mg Tab, 500 MG PO TIDP PRN for PAIN LEVEL 1 TO 5, TAB 10/11/19 Tramadol Hcl (Tramadol HCl) 50 Mg Tablet, 50 MG PO TIDP PRN for PAIN LEVEL 6 TO 10, TAB 10/11/19 Pantoprazole Sodium (Pantoprazole Sodium) 40 Mg Tablet.dr, 40 MG PO DAILY, TAB 10/11/19 Loratadine (Loratadine) 10 Mg Tablet, 10 MG PO DAILY, TAB 10/11/19 Lisinopril (Lisinopril) 2.5 Mg Tablet, 2.5 MG PO DAILY, TAB 10/11/19 Past Medical History Past Medical History: Arthritis, Diabetes-Type II, Hypertension Past Surgical History: Other Surgical History Other: R KNEE REPLACEMENT, HERNIA REPAIR Social History Social History: Other Constitutional: (+) chills, (+) diaphoresis, (+) fever, (+) malaise, (+) weakness, (+) other documentation EENTM: (+) nose congestion Respiratory: (-) cough, (-) orthopnea, (-) short of breath, (-) stridor, (-) wheezing, (-) other documentation Cardiovascular: (-) chest pain, (-) edema, (-) palpitations, (-) syncope, (-) dyspnea on exertion, (-) other documentation Gastrointestinal/Abdominal: (-) nausea, (-) vomiting, (-) diarrhea, (-) abdominal pain, (-) abdominal distention, (-) constipation, (-) rectal bleeding, (-) dark stool/melena, (-) other documentation Genitourinary: (-) penile discharge, (-) dysuria, (-) frequency, (-) hematuria, (-) pain, (-) other documentation Musculoskeletal: (-) Neck pain, (-) back pain, (-) Flank Pain, (-) joint pain, (-) joint swelling, (-) muscle pain, (-) muscle stiffness, (-) gout, (-) other documentation Skin: (-) laceration, (-) contusion, (-) abrasion, (-) abscess, (-) rash, (-) change in color, (-) change in hair, (-) change in nails, (-) diaphoresis, (-) dryness, (-) other documentation Neuro: (-) altered mental status, (-) headache, (-) syncope, (-) paralysis, (-) numbness, (-) seizure, (-) pre-existing deficit, (-) tremors, (-) weakness, (-) dizziness, (-) slurred speech, (-) vertigo, (-) other documentation Psych: (-) depression, (-) suicidal ideation, (-) anxiety, (-) emotional problems, (-) auditory hallucinations, (-) visual hallucinations Review of Systems: was completed Nurses Notes Reviewed: Yes Physical Exam General Appearance: (+) no apparent distress Orientation: (+) alert, (+) oriented x 3 Head/Face Trauma: No Ear, Nose, Throat: (+) nasal drip Neck: (+) normal inspection, (+) supple, (+) full range of motion Respiratory: (+) chest non-tender, (+) lungs clear Heart: (+) regular Vascular: (+) no edema Gastrointestinal: (+) soft, (+) non-tender Results Laboratory and Microbiology Lab and Micro Result Laboratory Tests Test 02/18/25 15:23 Influenza Type A Antigen Negative For Type A Influenza Type B Antigen Negative For Type B SARS-CoV-2 Antigen (Rapid) PRESUMPTIVE NEGATIVE Group A Streptococcus Rapid negative (NEGATIVE) MDM Differential diagnosis: Postnasal drip, sinusitis, upper respiratory tract infection. This patient, a 79-year-old male, presented with complaint of productive cough associated with postnasal drip. On emergency visit, rapid strep test, influenza and COVID tests were performed which came back negative. Patient was given IM dexamethasone due to complain of congestion and postnasal drip. Patient is vitally stable and saturating well at room air. He is being discharged with Flonase and loratadine p.r.n.. ED Course Orders Procedure Category Date Status Time Rapid (Group A Strep) LAB 02/18/25 Complete 16:06 Influenza Type A & B, LAB 02/18/25 Complete Rapid 16:06 Covid19 (Sars Antigen LAB 02/18/25 Complete Rapid) 16:06 Dexamethasone 4mg/Ml PHA 02/18/25 Complete 1ml Vial (Dexametha 16:30 Current Medications Medications (Trade) Dose Ordered Sig/Sesar Route PRN Reason Start Time Stop Time Status Last Admin Dose Admin Dexamethasone Sodium Phosphate (dexaMETHasone 4MG/ML 1ML VIAL) 4 mg ONCE ONCE IM 02/18/25 16:30 02/18/25 16:31 DC Vital Signs Date Time Temp Pulse Resp B/P (MAP) Pulse Ox O2 Delivery O2 Flow Rate FiO2 02/18/25 15:20 98.2 76 16 146/84 98 Room Air HEART Score Response (Comments) Value Age: > 65yrs (+2) 2 Total 2 DX & DISP Disposition: Discharge Departure Impression: Primary Impression: Postnasal drip Additional Impression: Allergic rhinitis with postnasal drip Condition: Stable Scripts Loratadine (Loratadine) 10 Mg Tablet 1 TAB PO DAILY for allergy symptoms for 30 Days, #30 TAB 0 Refills Prov: PROMISE BROWN MD 02/18/25 Fluticasone Propionate (Flonase Nasal [place]) 50 Mcg/Actuation [place] 2 SPRAY NS DAILY for postnasal drip for 30 Days, #16 GM 0 Refills Prov: PROMISE BROWN MD 02/18/25 Additional Instructions: FOLLOW-UP WITH PRIMARY CARE PROVIDER IN 1 TO 2 DAYS. TAKE MEDICATIONS DIRECTED HERE IN THE EMERGENCY ROOM. OKAY TO CONTINUE HOME MEDICATIONS UNLESS OTHERWISE DISCUSSED DURING YOUR VISIT IN THE EMERGENCY ROOM TODAY. RETURN TO YOUR NEAREST EMERGENCY ROOM IF SYMPTOMS WORSEN OR IF THERE IS NO IMPROVEMENT. CALL 911 IF YOU NEED IMMEDIATE ASSISTANCE. TAKE TYLENOL [id number] NEEDED AND IF NO CONTRAINDICATIONS ARE PRESENT. INCREASE ORAL HYDRATION. A WOUND CULTURE OR URINE CULTURE WAS ORDERED HERE IN THE EMERGENCY ROOM DEPARTMENT PLEASE FOLLOW-UP WITH PRIMARY CARE PROVIDER AND ADVISE THEM TO GET REPORTS FROM OUR FACILITY. IF YOU HAD ANY STEPHANIE WRAP/SPLINTS THAT WERE APPLIED HERE, PLEASE DO NOT REMOVE THEM UNTIL YOU SEE YOUR PRIMARY CARE OR SPECIALTY. Referrals: Referrals: ROCCO MARK (PCP) Time of Disposition: 16:57 PROMISE BORWN MD Feb 18, 2025 16:13 JEFFY KHAN MD Feb 18, 2025 16:57
[2025-02-18 16:35] LABS: RAPID GROUP A STREP negative (NEGATIVE)
[2025-02-18 16:39] LABS: INFLUENZA TYPE A Negative For Type A (NEGATIVE); INFLUENZA TYPE B Negative For Type B (NEGATIVE)
[2025-02-18 16:40] LABS: COVID19 (SARS ANTIGEN RAPID) PRESUMPTIVE NEGATIVE (NEGATIVE)
[2025-02-18] MEDS ORDERED: LORA10TA7 PO (16:48)
[2025-02-18] MEDS ORDERED: FLUT16H NS (16:48)
== END 2025-02-18 17:14 | disposition left against medical advice (07) ==
LOC: EDH 15:19
DX: R09.82 Postnasal drip (principal); J30.9 Allergic rhinitis, unspecified; E11.9 Type 2 diabetes mellitus without complications; I10 Essential (primary) hypertension; M19.90 Unspecified osteoarthritis, unspecified site; Z79.82 Long term (current) use of aspirin; Z79.899 Other long term (current) drug therapy; Z88.5 Allergy status to narcotic agent; Z96.651 Presence of right artificial knee joint; Z98.890 Other specified postprocedural states; Z20.822 Contact with and (suspected) exposure to COVID-19
CPT/HCPCS: 87426; 87804; 87880; 99283